=== PATIENT | female | born 1985 | race Two or more races ===

== ENCOUNTER 2023-06-14 11:30 | Emergency (ER) | payer MEDICAID ==
[~2023-06-14] VITALS: Ht 162.6 cm; Wt 107.3 kg
[2023-06-14 11:45] VITALS: BP 119/60; PULSE 84; RESP 18; TEMP 98; O2SAT 98
[2023-06-14] MEDS ORDERED: SODIUM CHLORIDE 0.9% 1,000 ML IV ONE (12:15)
[2023-06-14 13:10] LABS: Urine Bacteria FEW /hpf (None Seen); Urine Blood 3+ /uL (Negative); Urine Clarity HAZY (Clear); Urine Protein, UAD TRACE (Negative); Urine Specific Gravity 1.009 (1.001-1.035); Urine Urobilinogen Normal (Negative); Urine WBC 90 /hpf (0 - 5); Urine pH 5.5 (5.0-8.0)
[2023-06-14 13:11] LABS: Urine Color Yellow (Yellow)
[2023-06-14 13:21] LABS: Basophils # (auto) 0 10 ^3/uL (0-0.2); Basophils % (auto) 0.5 % (0.0-2.0); Eosinophils # (auto) 0.2 10 ^3/uL (0-0.8); Eosinophils % (auto) 3.5 % (0.0-7.0); Hematocrit 39.8 % (36.0-46.0); Hemoglobin 13.5 g/dL (12.2-16.2); Lymphocytes # (auto) 1.6 10 ^3/uL (0.4-5.4); Lymphocytes % (auto) 23.8 % (10.0-50.0); Mean Corpuscular Hemoglobin 31.1 pg (28.0-32.0); Mean Corpuscular Hgb Conc. 33.9 g/dL (32.0-36.0); Mean Corpuscular Volume 91.8 fL (80.0-100.0); Monocytes # (auto) 0.6 10 ^3/uL (0-1.3); Monocytes % (auto) 8.7 % (0.0-12.0); Neutrophils # (auto) 4.3 10 ^3/uL (1.6-8.6); Neutrophils % (auto) 63.5 % (37.0-80.0); Nucleated Red Blood Cells % 0.1 %; Red Blood Cells 4.33 10^6/uL (4.0-5.20); White Blood Cell 6.7 10^3/uL (4.4-10.8)
[2023-06-14] MEDS ORDERED: ACETAMINOPHEN 325 MG TAB PO ONE (13:30)
[2023-06-14 13:44] LABS: Alanine Aminotransferase 78 U/L (7-40); Albumin 4.3 g/dL (3.2-4.8); Alkaline Phosphatase 64 U/L (46-116); Anion Gap 8 (5-15); Aspartate Aminotransferase 40 U/L (13-40); BUN/Creatinine Ratio 14.5 (10.0-20.0); Bilirubin, Total 0.4 mg/dL (0.2-1.0); Blood Urea Nitrogen 12 mg/dL (9-23); Calcium 8.9 mg/dL (8.5-10.1); Carbon Dioxide 25 mmol/L (20-30); Chloride 106 mmol/L (98-107); Glucose 94 mg/dL (74-106); Potassium 3.9 mmol/L (3.5-5.1); Sodium 139 mmol/L (136-145); Total Protein 6.5 g/dL (5.7-8.2)
[2023-06-14] MEDS ORDERED: cefTRIAXone 1GM/50ML D5W 50 ML IV ONE (14:30)
[2023-06-14] MEDS ORDERED: HYDROcodone-ACET 5/325MG TAB PO ONE (16:15)
[2023-06-14] MEDS ORDERED: CEPH500C PO (23:24)
== END 2023-06-14 16:57 | disposition home or self-care (01) ==
LOC: ER 11:30
DX: O03.9 Complete or unspecified spontaneous abortion without complication (principal); R10.2 Pelvic and perineal pain; Z3A.00 Weeks of gestation of pregnancy not specified
CPT/HCPCS: 36415; 76801; 76817; 80053; 81001; 81025; 84702; 85025; 86850; 86900; 86901; 96361; 96365; 99285; J0696; J7030

== ENCOUNTER 2025-02-06 11:34 | Emergency (ER) | payer BC, MEDICAID ==
[~2025-02-06] VITALS: Ht 162.6 cm; Wt 108.7 kg
[~2025-02-06 11:34] MED LIST: CEPH500C PO
--- NOTE | 2025-02-06 11:57 | ED.PDOC ---
STERILE PROCESSING TECHNICIAN HPI Comments This is a 39 year old female presenting to the ED with chief complaint of vaginal bleeding. Patient reports that she has been experiencing worsening vaginal bleeding with associated clots for the past 2 weeks. Patient relays that she started her normal menses 2 weeks ago, but it continued for longer than usual and had large clots being passed, which has not happened before. Patient states that she has had a previous miscarriage in the past, but her symptoms now do not feel like when she had it as there is no pain at this time. Patient has not seen her OBGYN in 6 years since her last . Patient denies any N/V, abdominal pain, chest pain, fever, chills, dizziness, or dysuria. Time Seen by MD: 11:45 Reviewed Notes: Nurses Notes, Allergies Allergies: Coded Allergies: NO KNOWN ALLERGIES (Unverified , 06/14/23) Home Meds Active Scripts Cephalexin (KEFLEX CAPSULE) 250 Mg Cp, 250 MG PO QID for 7 Days, #28 BOTTLE Prov:JARED RANGEL MD 02/06/25 Cephalexin Monohydrate (Cephalexin) 500 Mg Cap, 500 MG PO Q8HR for 5 Days, #15 CAP Prov:SYLVIA VALENCIA DO 06/14/23 Information Source: Patient Mode of Arrival: Ambulatory Timing: Weeks Prehospital treatment: None Severity: Moderate Bleeding Quality: Bright Red, Clotted Onset Of Mass/Bleeding: Spontaneous Past Medical History PAST MEDICAL HISTORY: Denies Surgical History: Denies all surgeries [employer] History: Denies all [employer] Hx Family History Family History: Reviewed,noncontributory to illness Social History Smoker: Non-Smoker Alcohol: Denies ETOH Use Drugs: Denies Drug Use Lives In: Home Constitutional: denies: chills, diaphoresis, fatigue, fever, malaise, sweats, weakness, others EENTM: denies: blurred vision, double vision, ear bleeding, ear discharge, ear drainage, ear pain, ear ringing, eye pain, eye redness, hearing loss, mouth pain, mouth swelling, nasal discharge, nose bleeding, nose congestion, nose pain, photophobia, tearing, throat pain, throat swelling, voice changes, others Respiratory: denies: cough, hemoptysis, orthopnea, SOB at rest, shortness of breath, SOB with excertion, stridor, wheezing, others Cardiovascular: denies: chest pain, dizzy spells, diaphoresis, Dyspnea on exertion, edema, irregular heart beat, left arm pain, lightheadedness, palpitations, PND, syncope, others Gastrointestinal: denies: abdomen distended, abdominal pain, blood streaked bowels, constipated, diarrhea, dysphagia, difficulty swallowing, hematemesis, melena, nausea, poor appetite, poor fluid intake, rectal bleeding, rectal pain, vomiting, others Genitourinary: reports: abnormal vagina bleeding; denies: burning, dyspareunia, dysuria, flank pain, frequency, hematuria, incontinence, pain, , vagina discharge, urgency, others Neurological: denies: dizziness, fainting, headache, left sided numbness, left sided weakness, numbness, paresthesia, pre-existing deficit, right sided numbness, right sided weakness, seizure, speech problems, tingling, tremors, weakness, others Musculoskeletal: denies: back pain, gout, joint pain, joint swelling, muscle pain, muscle stiffness, neck pain, others Integumetry: denies: bruises, change in color, change in hair/nails, dryness, laceration, lesions, lumps, rash, wounds, others Allergic/Immunocompromised: denies: Difficulty Healing, Frequent Infections, Hives, Itching, others Hematologic/Lymphatic: denies: anemia, blood clots, easy bleeding, easy bruising, swollen glands, others Endocrine: denies: excessive hunger, excessive sweating, excessive thirst, excessive urination, flushing, intolerance to cold, intolerance to heat, unexplained weight gain, unexplained weight loss, others Psychiatric: denies: anxiety, bipolar disorder, depression, hopeless, panic disorder, schizophrenia, sleepless, suicidal, others All Other Systems: Reviewed and Negative Physical Exam General Appearance: Moderate Distress, Normal HEENT: Normal ENT Inspection, Pharynx Normal, TMs Normal Neck: Full Range of Motion, Non-Tender, Normal, Normal Inspection Respiratory: Chest Non-Tender, Lungs Clear, No Accessory Muscle Use, No Respiratory Distress, Normal Breath Sounds Cardiovascular: No Edema, No JVD, No Murmur, No Gallop, Normal Peripheral Pulses, Regular Rate/Rhythm Breast Exam: Deferred Gastrointestinal: No Organomegaly, Non Tender, No Pulsatile Mass, Normal Bowel Sounds, Soft Genitalia: Deferred Pelvic: Deferred Rectal: Deferred Extremities: No calf tenderness, Normal capillary refill, Normal inspection, Normal range of motion, Non-tender, No pedal edema Musculoskeletal : Apperance: Normal Neurologic: Alert, volunteer manager II-XII nml as Tested, No Motor Deficits, Normal Affect, Normal Mood, No Sensory Deficits Cerebellar Function: Normal Reflexes: Normal Skin: Dry, Normal Color, Warm Lymphatic: No Adenopathy Was a procedure done? Was a procedure done?: No X-Ray, Labs, Meds, VS Vital Signs Date Time Temp Pulse Resp B/P (MAP) Pulse Ox O2 Delivery O2 Flow Rate FiO2 02/06/25 13:36 73 16 95 Room Air 02/06/25 13:36 98.8 73 16 133/88 (103) 95 98.8 02/06/25 12:01 99.4 79 18 147/78 (101) 98 99.4 Lab Test 02/06/25 13:35 02/06/25 12:15 Range/Units Urine Color Light-yellow Yellow Urine Clarity Clear Clear Urine pH 6.0 5.0-9.0 Urine Specific [place] 1.022 1.001-1.035 Urine Protein Negative Negative Urine Ketones Negative Negative Urine Blood Negative Negative /uL Urine Nitrite 2+ H Negative Urine Bilirubin Negative Negative Urine Urobilinogen Normal Negative mg/dL Urine Leukocyte Esterase Negative Negative /uL Urine RBC <1 0 - 4 /hpf Urine Microscopic WBC 2 0-5 /HPF Urine Squamous Epithelial Cells Few <5 /hpf Urine Bacteria Many H None Seen /hpf Urine Mucus Few None Seen Urine Glucose Normal Normal mg/dL Urine Test See comment A Negative White Blood Count 5.2 4.4-10.8 10^3/uL Red Blood Count 4.31 4.0-5.20 10^6/uL Hemoglobin 13.3 12.2-16.2 g/dL Hematocrit 39.0 36.0-46.0 % Mean Corpuscular Volume 90.5 80.0-100.0 fL Mean Corpuscular Hemoglobin 31.0 28.0-32.0 pg Mean Corpuscular Hemoglobin Concent 34.2 32.0-36.0 g/dL Red Cell Distribution Width 12.8 11.8-14.3 % Platelet Count 276 140-450 10^3/uL Mean Platelet Volume 7.4 6.9-10.8 fL Neutrophils (%) (Auto) 61.0 37.0-80.0 % Lymphocytes (%) (Auto) 27.8 10.0-50.0 % Monocytes (%) (Auto) 8.3 0.0-12.0 % Eosinophils (%) (Auto) 2.5 0.0-7.0 % Basophils (%) (Auto) 0.4 0.0-2.0 % Neutrophils # (Auto) 3.1 1.6-8.6 10 ^3/uL Lymphocytes # (Auto) 1.4 0.4-5.4 10 ^3/uL Monocytes # (Auto) 0.4 0-1.3 10 ^3/uL Eosinophils # (Auto) 0.1 0-0.8 10 ^3/uL Basophils # (Auto) 0 0-0.2 10 ^3/uL Nucleated Red Blood Cells 0.0 % Sodium Level 141 136-145 mmol/L Potassium Level 3.5 3.5-5.1 mmol/L Chloride Level 107 98-107 mmol/L Carbon Dioxide Level 26 20-31 mmol/L Anion Gap 8 5-15 Blood Urea Nitrogen 14 9-23 mg/dL Creatinine 1.06 H 0.550-1.02 mg/dL Glomerular Filtration Rate Calc 69 >90 mL/min BUN/Creatinine Ratio 13.2 10.0-20.0 Serum Glucose 97 74-106 mg/dL Calcium Level 9.5 8.7-10.4 mg/dL Beta HCG, Quantitative 65.2 H 1.5-4.2 mIU/mL Patient alert. Complaining of vaginal bleeding. Vitals stable. Answering questions. Abdomen is soft. No abdominal cramping. Beta quant slightly elevated. Waiting for ultrasound. Could not find the patient. Denies abdominal cramping. WBC within normal limits. Hemoglobin within normal limits. Urinalysis shows UTI. Was given prescription of Keflex antibiotic. Ultrasound reviewed does show small sac early explained to her that she will need to repeat the scan. Contact the patient. Continue to monitor. She was instructed to repeat the labs along with imaging. Was told to follow up with her primary care physician. Was told to come back if there is any problem. Time of 1ST Reevaluation: 12:43 Reevaluation 1ST: Unchanged Patient Education/Counseling: Diagnosis, Treatment Family Education/Counseling: No Family Present Additional Information Previous visits reviewed: 06/14/23 for vaginal bleeding The following tests were ordered, and results were reviewed by me: CBC, BMP, BHCG Quant Additional Information was gathered from interviewing the following independent historians: None I reviewed and agreed with the following test results read by other providers: None I discussed treatment and results with medical personnel and: patient Comprehensive systems review obtained and negative except for what is stated in the HPI. Departure 1 Departure Time of Disposition: 17:23 Impression: Primary Impression: Vaginal bleeding in Additional Impression: UTI (urinary tract infection) Qualified Codes: N30.00 - Acute cystitis without hematuria Disposition: HOME / SELF CARE / HOMELESS Condition: Good e-Prescriptions Cephalexin (KEFLEX CAPSULE) 250 Mg Cp 250 MG PO QID for 7 Days, #28 BOTTLE Prov: JARED ARNGEL MD 02/06/25 Discharged With: Self Critical Care Note Critical Care Time?: No Stability Stability form required: No Heart Score Heart Score: Heart Score Response (Comments) Value History N/A 0 EKG N/A 0 Age N/A 0 Risk Factors N/A 0 Troponin N/A 0 Total 0 I personally scribed for JARED RANGEL MD ([email or web address]) on 02/06/25 at 11:57. Electronically submitted by Nguyễn Mckenzie ([email or web address]). JARED RANGEL MD Feb 06, 2025 11:57
[2025-02-06 12:32] LABS: Hematocrit 39.0 % (36.0-46.0); Hemoglobin 13.3 g/dL (12.2-16.2); Mean Corpuscular Hemoglobin 31.0 pg (28.0-32.0); Mean Corpuscular Volume 90.5 fL (80.0-100.0); Nucleated Red Blood Cells % 0.0 %
[2025-02-06 12:50] LABS: Sodium 141 mmol/L (136-145)
[2025-02-06 12:51] LABS: Anion Gap 8 (5-15); Calcium 9.5 mg/dL (8.7-10.4); Carbon Dioxide 26 mmol/L (20-31)
[2025-02-06 12:53] LABS: Chloride 107 mmol/L (98-107); Potassium 3.5 mmol/L (3.5-5.1)
[2025-02-06 12:56] LABS: BUN/Creatinine Ratio 13.2 (10.0-20.0); Blood Urea Nitrogen 14 mg/dL (9-23); Glucose 97 mg/dL (74-106)
[2025-02-06 13:36] VITALS: BP 133/88; PULSE 73; RESP 16; TEMP 98.8; O2SAT 95
[2025-02-06 14:10] LABS: Urine Protein, UAD Negative (Negative)
[2025-02-06] MEDS ORDERED: CEPH250C PO (16:26)
--- NOTE | 2025-02-06 18:39 | DVH ---
OB ULTRASOUND <14 WEEKS: HISTORY: bleeding TECHNIQUE: Multiple real-time grayscale sonographic images of the pelvis with duplex Doppler color f low, spectral and M-mode analysis. TRANSDUCERS: Transabdominal FINDINGS: The uterus measures 11.5 x 5.7 x 7 cm. Endometrium measures 6.5 mm Right ovary measures 8.8 x 6.1 x 5.4 with normal Doppler color flow. 153 cc. There is an anechoic m ass in the right ovary measuring 6.8 x 4.8 x 5.4 cm Left ovary measures 4.3 x 2.2 x 3.5 cm with normal Doppler color flow. Volume of the left ovary is 1 6 cc. IUP single gestational sac is out of range. heart rate not detected at this time. Yolk sac not visualized. Lakesha-gestational space: Measures 0.62 cm IMPRESSION: 1. 0.62 cm cystic area in the endometrial canal which is out of range for estimating gestational age. 2. Large cystic structure in the right adnexa . Beta HCG is 62.
== END 2025-02-06 17:35 | disposition home or self-care (01) ==
LOC: ER 11:39
DX: O20.9 Hemorrhage in early pregnancy, unspecified (principal); O23.40 Unspecified infection of urinary tract in pregnancy, unspecified trimester; N39.0 Urinary tract infection, site not specified; Z79.899 Other long term (current) drug therapy
CPT/HCPCS: 36415; 76801; 80048; 81001; 81025; 84702; 85025